=== PATIENT | female | born 2000 | race Caucasian/White ===

== ENCOUNTER 2021-05-08 10:27 | Emergency (ER) | payer OTHER, SELFPAY ==
[2021-05-08 10:37] VITALS: BP 145/78; PULSE 98; RESP 16; TEMP 37.7; O2SAT 98
--- NOTE | 2021-05-08 11:15 | ED.URI ---
HPI - URI/Sore Throat General Chief Complaint: Upper Respiratory Infection Stated Complaint: upper respiratory Time Seen by Provider: 05/08/21 10:58 Source: patient and RN notes reviewed Mode of arrival: ambulatory Limitations: no limitations History of Present Illness HPI Narrative: Patient presents today complaining of 3-day history of sore throat, cough, congestion, fatigue. Denies fever or shortness of breath. Denies sick contacts. She has been taking Mucinex with relief. The DayQuil that she is taking is not providing any relief. She has had one of her 2 COVID-19 vaccines. MD elicited complaint: cough and sore throat Related Data Home Medications Medication Instructions Recorded Confirmed No Home Medications 05/08/21 05/08/21 Allergies Allergy/AdvReac Type Severity Reaction Status Date / Time No Known Allergies Allergy Verified 05/08/21 10:43 Review of Systems Review of Systems: CONSTITUTIONAL: Denies body aches, fever, chills, or sweats.+ Fatigue EYES: Denies visual changes, redness, or discharge. ENT: Denies rhinorrhea, or otalgia.+ Congestion, sore throat CARDIOVASCULAR: Denies chest pain, palpitations, or edema. RESPIRATORY: Denies dyspnea.+ Cough GASTROINTESTINAL: Denies abdominal pain, nausea, vomiting, or diarrhea. GENITOURINARY: Denies dysuria or hematuria. SKIN: Denies rash, itching, or wounds. MUSCULOSKELETAL: Denies back pain, joint pain, or myalgia. NEUROLOGIC: Denies headache, numbness, tingling, or weakness. PSYCH: Denies depression or anxiety. PMFSH Social History Social History Gender identity (if verbalized by the patient): Female Comments At time of signature, I have reviewed and agree with nursing past medical, surgical, social and family history unless otherwise noted. Please see nursing chart for further information. There is no relevant family history pertinent to the presenting complaint Exam Narrative: GENERAL: Mildly ill-appearing, well-nourished, and in no acute distress. HEAD: Normocephalic, atraumatic. EYES: EOMI. No redness or drainage. Conjunctivae normal. ENT: Mucous membranes pink and moist. Nares congested. No rhinorrhea. TMs normal bilaterally. Throat mildly erythematous without edema or exudate. Uvula midline. NECK: Normal AROM. Supple. Left anterior cervical chain lymphadenopathy CHEST: No respiratory distress. Clear to auscultation. HEART: Regular rate and rhythm. No murmur appreciated. Normal peripheral pulses. EXTREMITIES: Normal range of motion. No edema. SKIN: Warm, dry, no rash. Capillary refill normal. Normal skin turgor. NEURO: No focal deficits. Alert and oriented x3. Gait steady. PSYCH: Normal affect. No signs of depression or anxiety. Course Vital Signs Vital signs: Vital Signs Temperature 99.9 F H 05/08/21 10:37 Pulse Rate 98 05/08/21 10:37 Respiratory Rate 16 05/08/21 10:37 Blood Pressure 145/78 H 05/08/21 10:37 Pulse Oximetry 98 05/08/21 10:37 Temperature 99.9 F H 05/08/21 10:37 Pulse Rate 98 05/08/21 10:37 Respiratory Rate 16 05/08/21 10:37 Blood Pressure 145/78 H 05/08/21 10:37 Pulse Oximetry 98 05/08/21 10:37 Reviewed. Pt has been instructed to follow up with her PCP regarding her elevated blood pressure today. MDM - URI/Sore Throat Differential Diagnosis Differential diagnosis: Likely upper respiratory infection, otitis media, sinusitis, viral infection, bronchitis, pharyngitis and other (Strep throat, COVID-19) Lab Data Attestation: I reviewed the patient's lab results. Lab results narrative: Rapid COVID-19 test negative Labs: Strep Screen Presumptive Negative *(Reference Range: Negative)* Critical Care Time Critical Care Time Critical Care Time: No Discharge Plan Discharge Clinical Impression: Upper respiratory infection Qualifiers: URI type: unspecified URI [place]
== END 2021-05-08 11:40 | disposition home or self-care (01) ==
LOC: EXPBETH 10:32
PROVIDERS: Emergency Provider Nurse Practitioner
DX: J06.9 Acute upper respiratory infection, unspecified (principal); Z20.822 Contact with and (suspected) exposure to COVID-19
CPT/HCPCS: 87081; 87426; 87880; 99203; C9803; G0463

== ENCOUNTER 2022-10-28 15:26 | Emergency (ER) | payer OTHER, SELFPAY ==
[2022-10-28 15:32] VITALS: BP 153/93; PULSE 90; RESP 16; TEMP 36.8; O2SAT 99
[2022-10-28 15:36] VITALS: BP 153/93; PULSE 90; RESP 16; TEMP 36.8; O2SAT 99
--- NOTE | 2022-10-28 15:58 | ED.GENADULT ---
HPI - General Adult General Chief complaint: Skin/Abscess/Foreign Body Stated complaint: Skin Sore Source: patient Mode of arrival: ambulatory Limitations: no limitations History of Present Illness HPI narrative: Patient presents for evaluation of of painful sore to the right lower lip for the last few days. She has a history of cold sores. She tried using a topical product without much improvement. She has used oral acyclovir in the past with success. LMP two weeks ago. She has not been sexually active since that time. No additional complaints or concerns. Related Data Allergies Allergy/AdvReac Type Severity Reaction Status Date / Time No Known Allergies Allergy Verified 10/28/22 15:36 Review of Systems Review of Systems: CONSTITUTIONAL: Denies fever, chills, or sweats. EYES: Denies visual changes, redness, or discharge. ENT: Reports painful sore to right lower lip. Denies rhinorrhea, congestion, sore throat, or otalgia. CARDIOVASCULAR: Denies chest pain, palpitations, or edema. RESPIRATORY: Denies cough or dyspnea. GASTROINTESTINAL: Denies abdominal pain, nausea, vomiting, or diarrhea. GENITOURINARY: Denies dysuria or hematuria. SKIN: Denies rash or itching. MUSCULOSKELETAL: Denies back pain, joint pain, or myalgia. NEUROLOGIC: Denies headache, numbness, dizziness, or weakness. PSYCHIATRIC: Denies anxiety or depression. [facility] Past Medical History Medical History Herpes simplex Surgical History Surgical History No pertinent past surgical history Family History Family History Mother Family history non-contributory Social History Social History Smoking status: Never smoker Substance use: never Additional living arrangements comments: Lives with boyfriend Gender identity (if verbalized by the patient): Female Sexual Orientation (if Verbalized by the Patient): Straight or Heterosexual Spiritual care concerns: No Exam Narrative: GENERAL: Well-appearing, well-nourished, and in no acute distress. HEAD: Normocephalic, atraumatic. EYES: PERRLA and EOMI. ENT: Nares clear, no rhinorrhea or epistaxis. Mucous membranes moist. There is an approximately 8mm vesicular lesion to the right lower lip. Oropharynx without tonsillar hypertrophy exudate. Bilateral TMs pearly bella nonbulging NECK: Supple. No adenopathy or masses. No carotid bruits or JVD CHEST: Clear to auscultation. No respiratory distress. No wheezes rales or rhonchi HEART: Regular rate and rhythm. No murmur heard. Normal peripheral pulses. ABDOMEN: Soft, nontender, nondistended, normal active bowel sounds. EXTREMITIES: Normal range of motion. No edema. SKIN: Warm, dry, no rash. NEURO: No focal deficits. Alert and oriented x3. PSYCH: Normal mood and affect. Course Course Emergency Course: This is a 22-year-old female who presented for evaluation of a right lower lip lesion. Exam is consistent with herpes simplex. not checked as she has not been sexually active since LMP. I did offer to give her Valtrex due to shorter duration of therapy but she preferred acyclovir. Script sent to her pharmacy. Follow up with primary provider. Go to ER for worsening symptoms. Pt in agreement with plan of care. Level of Care: Express Care Visit Vital Signs Vital signs: Vital Signs Temperature 36.8 C 10/28/22 15:32 Pulse Rate 90 10/28/22 15:32 Respiratory Rate 16 10/28/22 15:32 Blood Pressure 153/93 H 10/28/22 15:32 Pulse Oximetry 99 10/28/22 15:32 Oxygen Delivery Room Air 10/28/22 15:32 Temperature 36.8 C 10/28/22 15:36 Pulse Rate 90 10/28/22 15:36 Respiratory Rate 16 10/28/22 15:36 Blood Pressure 153/93 H 10/28/22 15:36 Pulse Oximetry 99 10/28/22 15:36 Oxygen Deli
== END 2022-10-28 16:01 | disposition home or self-care (01) ==
PROVIDERS: Emergency Provider Nurse Practitioner; PCP Emergency Medicine
DX: B00.1 Herpesviral vesicular dermatitis (principal)
CPT/HCPCS: 99213; G0463

== ENCOUNTER 2023-12-17 08:06 | Emergency (ER) | payer OTHER, SELFPAY ==
[2023-12-17 08:19] VITALS: BP 142/87; PULSE 82; RESP 16; TEMP 36.7; O2SAT 100
--- NOTE | 2023-12-17 08:28 | ED.GENADULT ---
HPI - General Adult General Chief complaint: Skin/Abscess/Foreign Body Stated complaint: Skin Sore Time Seen by Provider: 12/17/23 08:28 Source: patient Mode of arrival: ambulatory Limitations: no limitations History of Present Illness HPI narrative: 23 y/o female presented for c/o painful right upper lip cold sore, onset yesterday. Endorses stress. History of cold sores, states she gets them about once per year. Started using the acyclovir cream previously prescribed, but denies any relief. Also requesting STD testing, stating her now ex--boyfriend was not monogamous.Denies any symptoms, states she just wants checked. Does not have pcp. Related Data Allergies Allergy/AdvReac Type Severity Reaction Status Date / Time No Known Allergies Allergy Verified 10/28/22 15:36 Review of Systems Review of Systems: CONSTITUTIONAL: Denies body aches, fever, chills, or sweats. ENT: reports lip sores Denies rhinorrhea, congestion CARDIOVASCULAR: Denies chest pain, palpitations, or edema. RESPIRATORY: Denies cough or dyspnea. GASTROINTESTINAL: Denies abdominal pain, nausea, vomiting, or diarrhea. : denies vaginal discharge, lesions, dysuria SKIN: denies rash MUSCULOSKELETAL: Denies back pain, joint pain, or myalgia. NEUROLOGIC: Denies headache PMFSH Past Medical History Medical History Herpes simplex Surgical History Surgical History No pertinent past surgical history Family History Family History Mother Family history non-contributory Social History Social History Smoking status: Never smoker Substance use: never Additional living arrangements comments: Lives with boyfriend Gender identity (if verbalized by the patient): Female Sexual Orientation (if Verbalized by the Patient): Straight or Heterosexual Spiritual care concerns: No Comments At time of signature, I have reviewed and agree with nursing past medical, surgical, social and family history unless otherwise noted. Please see nursing chart for further information. There is no relevant family history pertinent to the presenting complaint Exam Narrative: GENERAL: Well-appearing EYES: conjunctivae clear, and EOMI. ENT: Mucous membranes moist. Right upper lip vesicles extending to lateral edge, mild swelling. Oropharynx without edema, erythema or lesions. NECK: Supple. No lymphadenopathy CHEST: Clear to auscultation. HEART: Regular rate and rhythm. SKIN: Warm, dry. NEURO: Alert and oriented x3. HENMT: Mouth/tongue images: 1. area of scattered vesicles c/w HSV Course Course Emergency Course: Patient is aware of diagnosis, understands and agrees to treatment plan. Anticipatory guidance given. Patient agrees to follow-up as directed and is aware of reasons to seek care at the emergency department. Portions of this record may have been created with voice recognition software Level of Care: Express Care Visit Vital Signs Vital signs: Vital Signs Temperature 98.1 F 12/17/23 08:19 Pulse Rate 82 12/17/23 08:19 Respiratory Rate 16 12/17/23 08:19 Blood Pressure 142/87 H 12/17/23 08:19 Pulse Oximetry 100 12/17/23 08:19 Oxygen Delivery Room Air 12/17/23 08:19 Temperature 98.1 F 12/17/23 08:19 Pulse Rate 82 12/17/23 08:19 Respiratory Rate 16 12/17/23 08:19 Blood Pressure 142/87 H 12/17/23 08:19 Pulse Oximetry 100 12/17/23 08:19 Oxygen Delivery Room Air 12/17/23 08:19 Reviewed Medical Decision Making MDM Narrative Medical decision making narrative: Discussed physical exam findings c/w oral HSV infection. Rx valacyclovir. Declined empiric std treatment and is aware of the need to return for IM injection for gonorrhea if positive only. She is aware the results will
[2023-12-17 20:41] LABS: Trichomonas Vag PCR NOT DETECTED (NOT DETECTE)
[2023-12-17 21:03] LABS: Chlamydia trachomatis NOT DETECTED (NOT DETECTE); Neisseria gonorrhoeae PCR NOT DETECTED (NOT DETECTE)
== END 2023-12-17 08:44 | disposition home or self-care (01) ==
PROVIDERS: Emergency Provider Nurse Practitioner Family
DX: B00.1 Herpesviral vesicular dermatitis (principal); Z20.822 Contact with and (suspected) exposure to COVID-19
CPT/HCPCS: 87491; 87591; 87661; 99214; G0463